=== PATIENT | male | born 1955 | race Caucasian/White ===

== ENCOUNTER 2016-09-15 02:11 | Emergency (ER) | payer OTHER ==
[~2016-09-15] VITALS: Ht 180.3 cm; Wt 120.2 kg
[2016-09-15 02:26] VITALS: BP 135/82
--- NOTE | 2016-09-15 02:33 | ED INFLUENZA/URI COMPLAINT ---
History of Present Illness General Chief Complaint: General Adult Stated Complaint: "I THINK I HAVE A SINUS INFECTION" PER PT Source: patient, family Exam Limitations: no limitations Vital Signs & Intake/Output Vital Signs & Intake/Output Vital Signs Date Time Temp Pulse Resp B/P Pulse O2 O2 Flow FiO2 Ox Delivery Rate 09/15 0226 97.3 63 16 135/82 95 Room Air Allergies Coded Allergies: MDX - Penicillin (PENICILLIN) (Intermediate, FLUSHING 02/03/13) MDX - SULFA (sulfonamide) (SULFA (SULFONAMIDE)) (Intermediate, HIVES 02/03/13) doxycycline (Mild, RINGING IN EARS 09/15/16) moxifloxacin (From AVELOX) (Mild, HIVES 09/15/16) Uncoded Allergies: ZPACK (02/03/13) Reconcile Medications Albuterol Sulfate (Ventolin Hfa) 90 MCG HFA.AER.AD 2 PUF INH Q4-6 PRN PRN cough/wheeze Clindamycin HCl 300 MG CAPSULE 1 CAP PO 4 TIMES/DAY sinusitis Methylprednisolone. (Medrol) 4 MG TAB.DS.PK 1 DP PO AD sinusitis 6 on day 1 then reduce by one tablet daily until gone Promethazine HCl/Codeine (Promethazine-Codeine Syrup) 6.25 MG-10 MG/5 ML SYRUP 5-10 ML PO Q4-6 PRN cough one hundred twenty cc's... [id number] Triage Note: 60yo MALE TO TRIAGE W/CO ?SINUS INFECTION STATES HE'S "HAD A COLD SINCE AND ITS NOT GETTING ANY BETTER" CO HEADACHE AND ALSO COUGHING UP LT COLORED FLEM Triage Nurses Notes Reviewed? yes Onset: Gradual Duration: week(s):, waxing and waning Timing: recent history Severity: moderate Prior Episodes/Possible Cause: prior use of antibiotics with multiple adverse reactions Modifying Factors: Improves With: rest. Associated Symptoms: cough, nasal congestion, nasal drainage, sinus infection HPI: 60-year-old gentleman prior good health presents with more than 1 month of sinus congestion bilateral ear fullness and cough. He states, "I feel like I phlegm in my chest." He states that he has had occasional low-grade temperature. He states, "I think I have a sinus infection." He has no shortness of breath chest pain dizziness fever chills or abdominal pain. He is otherwise well Past History Travel History Traveled to [place] past 21 day No Medical History Any Pertinent Medical History? see below for history Influenza Vaccine: 05/21/12 Surgical History Surgical History: none Psychosocial History What is your primary language Macedonian Tobacco Use: Never used ETOH Use: occasional use Family History Hx Contributory? No Review of Systems Review of Systems Constitutional: Reports: no symptoms. EENTM: Reports: no symptoms. Respiratory: Reports: no symptoms. Cardiovascular: Reports: no symptoms. GI: Reports: no symptoms. Genitourinary: Reports: no symptoms. Musculoskeletal: Reports: no symptoms. Skin: Reports: no symptoms. Neurological/Psychological: Reports: no symptoms. Hematologic/Endocrine: Reports: no symptoms. Immunologic/Allergic: Reports: no symptoms. All Other Systems: Reviewed and Negative Physical Exam Physical Exam General Appearance: well developed/nourished, no apparent distress, alert, awake , comfortable Head: atraumatic, normal appearance Eyes: Bilateral: normal appearance. Ears, Nose, Throat: sinus congestion with hyperemia of the turbinates. Mild sinus tenderness to palpation Neck: normal inspection, supple Respiratory: normal breath sounds, chest non-tender, no respiratory distress, quiet respiration, lungs clear Cardiovascular: regular rate/rhythm Gastrointestinal: normal bowel sounds, soft, non-tender, no organomegaly Back: normal inspection, normal range of motion Extremities: normal inspection, normal capillary refill, normal range of motion Neurologic/Psych: no motor/sensory deficits, awake, alert, oriented x 3 Skin: intact, normal color, warm/dry Core Measures Severe Sepsis Present: No Septic Shock Present: No Progress Differential Diagnosis: sinusitis versus bronchitis versus other Plan of Care: A patient has had multiple adverse reactions to antibiotics. He has never been on clindamycin. Given the duration of his symptoms, I prescribed clindamycin steroids albuterol and a cough medicine. I encouraged close follow-up with his PMD. Initial ED EKG: none Departure Departure Disposition: HOME OR SELF CARE Condition: Stable Clinical Impression Primary Impression: Sinusitis Secondary Impressions: Bronchitis Referrals: [facility] TIERNEY,GORAN Jackson (PCP/Family) Departure Forms: Customer Survey General Discharge Information Prescriptions: Current Visit Scripts Methylprednisolone. (Medrol) 1 DP PO AD #1 DP 6 on day 1 then reduce by one tablet daily until gone Clindamycin HCl 1 CAP PO 4 TIMES/DAY #40 CAP Albuterol Sulfate (Ventolin Hfa) 2 PUF INH Q4-6 PRN PRN cough/wheeze #1 INHAL Ref 1 Promethazine HCl/Codeine (Promethazine-Codeine Syrup) 5-10 ML PO Q4-6 PRN cough #120 ML one hundred twenty cc's... [id number]
[2016-09-15] MEDS ORDERED: MEDROL4 M2 PO (02:39)
[2016-09-15] MEDS ORDERED: PROMETHAZINE-C118 ML PO (02:39)
[2016-09-15] MEDS ORDERED: VENTOLIN HFA18 GM INH (02:39)
[2016-09-15] MEDS ORDERED: CLINDAMYCIN HC300 M1 PO (02:39)
== END 2016-09-15 02:46 ==
LOC: ERH 02:11
DX: J32.9 Chronic sinusitis, unspecified (principal); J40 Bronchitis, not specified as acute or chronic